=== PATIENT | female | born 1965 | race Caucasian/White ===

== ENCOUNTER 2021-09-15 19:04 | Emergency (ER) | payer BC ==
[~2021-09-15] VITALS: Ht 160 cm; Wt 77.1 kg
[2021-09-15 19:10] VITALS: BP_SYST 131
[2021-09-15 22:23] LABS: BASOPHILS % (AUTO) 0.7 % (0.0-2.0); EOSINOPHILS # (AUTO) 0.2 K/uL (0.0-0.4); EOSINOPHILS % (AUTO) 4.5 % (0.0-4.0); HEMATOCRIT 36.5 % (36-48); HEMOGLOBIN 11.9 g/dL (12.0-16.0); LYMPHOCYTES # (AUTO) 1.7 K/uL (1.0-5.5); MEAN CORPUSCULAR HEMOGLOBIN 28 pg (27-31); MEAN CORPUSCULAR HGB CONC 33 % (32-36); MEAN CORPUSCULAR VOLUME 87 fL (79.0-98.0); MONOCYTES # (AUTO) 0.4 K/uL (0.0-1.0); MONOCYTES % (AUTO) 8.9 % (1.7-9.3); NEUTROPHILS # (AUTO) 2.6 K/uL (1.8-7.7); NEUTROPHILS % (AUTO) 51.9 % (40.0-70.0); PLATELET COUNT (AUTO) 263 K/uL (130-430); RED BLOOD CELL COUNT(AUTO) 4.19 MIL/uL (4.2-6.2); WHITE BLOOD COUNT (AUTO) 4.9 K/uL (4.8-10.8)
[2021-09-15 23:14] LABS: CALCIUM 8.9 mg/dL (8.4-11.0); CREATININE 0.77 mg/dL (0.55-1.30); INR 0.9 (0.8-1.2); POTASSIUM 3.7 mmol/L (3.5-5.1); PROTHROMBIN TIME 9.3 SECS (9.5-12.5)
[2021-09-15 23:20] LABS: ALBUMIN 3.4 g/dL (3.4-4.8); TOTAL BILIRUBIN 0.2 mg/dL (0.0-1.0)
[2021-09-15 23:28] LABS: ERYTHROCYTE SEDIMENTATION RATE 20 MM/HR (0-20)
[2021-09-16 00:50] VITALS: BP_SYST 129
== END 2021-09-16 00:50 | disposition home or self-care (01) ==
LOC: SED 19:04
DX: M25.571 Pain in right ankle and joints of right foot (principal); I10 Essential (primary) hypertension; Z88.2 Allergy status to sulfonamides
CPT/HCPCS: 36415; 80053; 85025; 85379; 85610-TC; 85651-TC; 99284